=== PATIENT | male | born 1975 | race Two or more races ===

== ENCOUNTER 2017-08-23 18:21 | Emergency (ER) | payer OTHER ==
[~2017-08-23] VITALS: Ht 165.1 cm; Wt 81.6 kg
[2017-08-23 20:31] VITALS: BP 120/78
== END 2017-08-23 20:21 | disposition home or self-care (01) ==
LOC: ER 18:21 → EDBD 18:21 → ER 20:21
DX: S50.312A Abrasion of left elbow, initial encounter (principal); S09.8XXA Other specified injuries of head, initial encounter; F10.10 Alcohol abuse, uncomplicated; V03.99XA Pedestrian with other conveyance injured in collision with car, pick-up truck or van, unspecified whether traffic or nontraffic accident, initial encounter; Y93.89 Activity, other specified; Y92.488 Other paved roadways as the place of occurrence of the external cause; Y99.2 Volunteer activity
CPT/HCPCS: 70450